=== PATIENT | male | born 1950 | race Caucasian/White ===

== ENCOUNTER → 2023-06-21 07:02 | Outpatient (REF) | payer MEDICARE, OTHER, SELFPAY ==
[2023-06-21 10:00] LABS: % Basophils 0.6 % (0-2); % Eosinophils 5.5 % (0-6); % Immature Granulocytes 0.3 % (0-0.5); % Lymphocytes 31.5 % (20.5-51.1); % Monocytes 11.1 % (1.7-9.3); Absolute Eosinophils 0.4 10^3/uL (0-0.7); Absolute Lymphocytes 2.1 10^3/uL (1.2-3.4); Absolute Monocytes 0.7 10^3/uL (0.1-0.6); Absolute Neutrophils 3.3 10^3/uL (1.4-6.5); Hematocrit 38.9 % (39.0-52.0); Hemoglobin 12.9 g/dL (13.0-18.0); Mean Corp Hgb Conc. 33.2 g/dL (33.0-37.0); Mean Corpuscular Hgb 32.3 pg (27.0-31.0); Mean Corpuscular Volume 97.5 fL (80.0-94.0); Mean Platelet Volume 9.7 fL (7.4-10.4); Nucleated Red Blood Cells % 0 % (-); Platelet Count 194 10^3/uL (130-400); Red Blood Cell Count 3.99 10^6/uL (4.70-6.10); Red Cell Dist. Width 13.5 % (11.5-14.5); White Blood Cell Count 6.5 10^3/uL (4.8-10.8)
[2023-06-21 10:39] LABS: ALT (SGPT) 29 U/L (0-50); AST (SGOT) 33 U/L (17-59); Albumin 3.7 g/dl (3.5-5.0); Alkaline Phosphatase 124 U/L (38-126); Blood Urea Nitrogen 22 mg/dl (9-20); Calcium 9.5 mg/dl (8.4-10.2); Carbon Dioxide 26 mmol/L (22-30); Chloride 107 mmol/L (98-107); Glucose 95 mg/dl (70-99); Sodium 137 mmol/L (135-145); Total Bilirubin 0.6 mg/dl (0.2-1.3); Total Protein 5.8 g/dl (6.3-8.2); eGFR > 60.00
[2023-06-21 11:09] LABS: PSA, Total - Diagnostic < 0.06 ng/ml (0.0-4.0)
[2023-06-21 11:10] LABS: Testosterone, Total 71.4 ng/dl (72-623)
== END ==
LOC: HWLAB 07:02
PROVIDERS: ATTENDING PHYSICIAN Internal Medicine; FAMILY PHYSICIAN Student in an Organized Health Care Education/Training Program
DX: C61 Malignant neoplasm of prostate (principal); C77.2 Secondary and unspecified malignant neoplasm of intra-abdominal lymph nodes
CPT/HCPCS: 36415; 80053; 84153; 84403; 85025

== ENCOUNTER 2023-07-08 01:02 | Emergency (ER) | payer MEDICARE, OTHER, SELFPAY ==
[2023-07-08 01:19] VITALS: BP 102/66
[2023-07-08 01:33] LABS: % Basophils 0.3 % (0-2); % Eosinophils 2.2 % (0-6); % Immature Granulocytes 0.4 % (0-0.5); % Lymphocytes 8.3 % (20.5-51.1); % Monocytes 6.6 % (1.7-9.3); % Neutrophils 82.2 % (42.2-75.2); Absolute Eosinophils 0.2 10^3/uL (0-0.7); Absolute Lymphocytes 0.9 10^3/uL (1.2-3.4); Absolute Monocytes 0.7 10^3/uL (0.1-0.6); Absolute Neutrophils 9.2 10^3/uL (1.4-6.5); Hematocrit 37.6 % (39.0-52.0); Hemoglobin 13.3 g/dL (13.0-18.0); Mean Corp Hgb Conc. 35.4 g/dL (33.0-37.0); Mean Corpuscular Hgb 33.3 pg (27.0-31.0); Nucleated Red Blood Cells % 0 % (-); Platelet Count 165 10^3/uL (130-400); Red Cell Dist. Width 13.5 % (11.5-14.5); White Blood Cell Count 11.1 10^3/uL (4.8-10.8)
[2023-07-08 01:55] LABS: ALT (SGPT) 20 U/L (0-50); AST (SGOT) 31 U/L (17-59); Albumin 3.3 g/dl (3.5-5.0); Alkaline Phosphatase 88 U/L (38-126); Blood Urea Nitrogen 19 mg/dl (9-20); Calcium 9.2 mg/dl (8.4-10.2); Carbon Dioxide 26 mmol/L (22-30); Chloride 100 mmol/L (98-107); Glucose 110 mg/dl (70-99); Potassium 3.3 mmol/L (3.5-5.1); Sodium 130 mmol/L (135-145); Total Bilirubin 1.5 mg/dl (0.2-1.3); Total Protein 5.6 g/dl (6.3-8.2); eGFR 48.85
[2023-07-08 02:00] VITALS: BP 90/59
[2023-07-08 02:10] LABS: Troponin I < 0.012 ng/ml
[2023-07-08 03:06] VITALS: BP 96/59
--- NOTE | 2023-07-08 03:16 | ED.GENMED ---
History of Present Illness
<ALINA Veras - Last Filed: 07/08/23 07:01>
General
Chief Complaint: Chest Pain
Source: patient
Exam Limitations: none
Time Seen by Provider: 07/08/23 03:05
Nursing documentation reviewed up to this point in time: agreed with
Travel History
Have you had any contact with someone who has COVID-19?: No
Do you have any symptoms of coronavirus? Fever > 100 degrees, chills, cough, shortness of breath, sore throat, loss of taste or smell, muscle aches, or headache?: No
History of Present Illness
History of Present Illness:
This is a 72 year old male, with a PMH of kidney stones, who presents to the ED c/o CP 5 hours ago. Pt states he had a urologic procedure yesterday morning to remove an obstructing kidney stone and for b/l orchiectomy due to prostate cancer. Pt
states he developed CP 12 hours after the procedure. He was sleeping when he was awoken with pounding constant left sided chest pain. He states he was also nauseous and vomited 2 times, with associated FULLER and dizziness. Pt states his chest pain has
gotten better but it is still there. He took diclofenac 5 hours ago. He denies any fever, chills, back pain, abd pain, or diarrhea. He states he has slight blood in his urine.
Past History
<ALINA Veras - Last Filed: 07/08/23 07:01>
Past History
ED Past Medical History: Asthma, HTN, Hypercholesterolemia and Other (History of Kidney stones, Urosepsis,)
ED Past Surgical History: Urological (kidney stones, castration (B/l orchiectomy))
Social History
Tobacco: Non-smoker
Alcohol: None
Drug: None
Personal:
Living: with family
Employment: Employed
Family History
Family History: CAD
Review of Systems
<Jinnyjose manuel [facility] - Last Filed: 07/08/23 07:01>
Review of Systems
Allergies reviewed?: Yes
All Other Systems: ROS reviewed and negative except as documented in HPI and ROS
Constitutional: Reports no symptoms; Denies fever or chills
EENT: Reports no symptoms
Respiratory: Reports no symptoms; Denies trouble breathing
Cardiac: Reports chest pain
ABD/GI: Reports nausea and vomiting; Denies abdominal pain
: Reports bleeding
Musculoskeletal: Reports no symptoms
Skin: Reports no symptoms
Neurological: Reports dizzy and headache
Psychiatric: Reports no symptoms
Phy Exam
<Juana Victor [facility] - Last Filed: 07/08/23 07:01>
General Physical Exam
General Presentation: no apparent distress
General age: appears stated age
General Skin: warm and dry
General Habitus: normal
General Mental: alert
General Hydration: dry mucous membranes
ENT Exam
ENT Exam: EOMI, pharynx normal, neck supple, normocephalic and swallowing well
Cardiovascular Exam
Cardiovascular Exam: regular rate/rhythm, no edema, no murmur, normal peripheral pulses and other (no chest wall tenderness)
Pulmonary Exam
Pulmonary Exam: lungs clear, no respiratory distress, no rales, no crackles, no rhonchi, no wheezing and no cough
Gastrointestinal Exam
Gastrointestinal Exam: normal bowel sounds, non tender, soft and non distended
Neurological Exam
Neurological Exam: alert and oriented x3
Musculoskeletal Exam
Musculoskeletal Exam: full ROM and no edema
Skin Exam
Skin Exam: normal color and warm/dry
Psychiatric Exam
Psychiatric Exam: normal mood/affect
Scores
<Juana Victor [facility] - Last Filed: 07/08/23 07:01>
Heart Score for Chest Pain Patients
STEMI patient?: Not applicable
<Barbra Devlin DO - Last Filed: 07/08/23 07:24>
Heart Score for Chest Pain Patients
STEMI patient?: No
History: Slightly or Non-Suspicious
ECG: Normal
Age: >/= 65 years
Risk Factors: 1 or 2 Risk Factors
Troponin: </= Normal Limit
Heart Score for Chest Pain Patients: 3
Heart Score Risk: 2.5% MACE over next 6 weeks
Course
<ALINA Veras - Last Filed: 07/08/23 07:01>
Orders/Labs/Results
Orders:
Orders
07/08/23 01:11
EKG [Electrocardiogram (*1)] Urgent
Reason for Study: Chest Pain
07/08/23 01:12
EKG- Treatment ONCE
07/08/23 01:23
Complete Blood Count/With Diff Urgent
Comprehensive Metabolic Panel Urgent
Troponin I Urgent
07/08/23 04:04
Pantoprazole [Protonix IV] 40 mg IV NOW STA
Abnormal Lab Results
07/08/23
01:23
WBC 11.1 H 10^3/uL
(4.8-10.8)
RBC 4.00 L 10^6/uL
(4.70-6.10)
Hct 37.6 L %
(39.0-52.0)
MCH 33.3 H pg
(27.0-31.0)
Absolute Neuts (auto) 9.2 H 10^3/uL
(1.4-6.5)
Absolute Lymphs (auto) 0.9 L 10^3/uL
(1.2-3.4)
Absolute Monos (auto) 0.7 H 10^3/uL
(0.1-0.6)
Neutrophils % 82.2 H %
(42.2-75.2)
Lymphocytes % 8.3 L %
(20.5-51.1)
Sodium 130 L mmol/L
(135-145)
Potassium 3.3 L mmol/L
(3.5-5.1)
Creatinine 1.5 H mg/dL
(0.7-1.3)
Glucose 110 H mg/dl
(70-99)
Total Bilirubin 1.5 H mg/dl
(0.2-1.3)
Total Protein 5.6 L g/dl
(6.3-8.2)
Albumin 3.3 L g/dl
(3.5-5.0)
07/08/23 01:23
07/08/23 01:23
Vital Signs
Initial and Last Documented VS:
Initial Vital Signs
Temp
98.0 F
07/08/23 01:12
Last Documented Vital Signs
Temp Pulse Resp BP Pulse Ox
98.0 F 77 14 99/70 98
07/08/23 01:12 07/08/23 04:00 07/08/23 04:00 07/08/23 04:00 07/08/23 04:00
<Barbra Devlin, DO - Last Filed: 07/08/23 07:24>
Orders/Labs/Results
Orders:
Orders
07/08/23 01:11
EKG [Electrocardiogram (*1)] Urgent
Reason for Study: Chest Pain
07/08/23 01:12
EKG- Treatment ONCE
07/08/23 01:23
Complete Blood Count/With Diff Urgent
Comprehensive Metabolic Panel Urgent
Troponin I Urgent
07/08/23 04:04
Pantoprazole [Protonix IV] 40 mg IV NOW STA
Abnormal Lab Results
03/02/24
01:23
WBC 11.1 H 10^3/uL
(4.8-10.8)
RBC 4.00 L 10^6/uL
(4.70-6.10)
Hct 37.6 L %
(39.0-52.0)
MCH 33.3 H pg
(27.0-31.0)
Absolute Neuts (auto) 9.2 H 10^3/uL
(1.4-6.5)
Absolute Lymphs (auto) 0.9 L 10^3/uL
(1.2-3.4)
Absolute Monos (auto) 0.7 H 10^3/uL
(0.1-0.6)
Neutrophils % 82.2 H %
(42.2-75.2)
Lymphocytes % 8.3 L %
(20.5-51.1)
Sodium 130 L mmol/L
(135-145)
Potassium 3.3 L mmol/L
(3.5-5.1)
Creatinine 1.5 H mg/dL
(0.7-1.3)
Glucose 110 H mg/dl
(70-99)
Total Bilirubin 1.5 H mg/dl
(0.2-1.3)
Total Protein 5.6 L g/dl
(6.3-8.2)
Albumin 3.3 L g/dl
(3.5-5.0)
07/08/23 01:23
07/08/23 01:23
Vital Signs
Initial and Last Documented VS:
Initial Vital Signs
Temp
98.0 F
07/08/23 01:12
Last Documented Vital Signs
Temp Pulse Resp BP Pulse Ox
98.0 F 77 14 99/70 98
07/08/23 01:12 07/08/23 04:00 07/08/23 04:00 07/08/23 04:00 07/08/23 04:00
<ALINA Veras - Last Filed: 07/08/23 07:01>
*Critical Care Note
Total Time (30-74mins, 75-104mins- exclusive of procedures): Not Applicable
<Barbra Devlin DO - Last Filed: 07/08/23 07:24>
*Pulse Oximetry
Patient hypoxic: no
*EKG
Interpreted by ED Provider?: Yes
Interpretation: normal
Comparison EKG: no changes (Unchanged from previous October 2021)
Rate: normal
Rhythm: sinus
[place]: normal axis
Interval: normal interval
QRS Pattern: normal QRS
Ischemia: no ischemia
*Blood Bank Technologist Interpretation
Rate: normal
Interpretation: normal
Rhythm: sinus
ED Attending Note
<ALINA Veras - Last Filed: 07/08/23 07:01>
-
Portions of this chart may have been created with voice recognition software.� Occasional wrong word or��sound alike� substitutions may have occurred due to the inherent limitations of voice recognition software.
<Barbra Devlin DO - Last Filed: 07/08/23 07:24>
ED Attending Note
Patient seen and examined by attending physician: Yes
I performed the substantive portion of visit, reviewed & personally made and approve the management plan that is documented in note by myself or EMILIANO.: Yes
I performed a history and physical exam of patient and discussed management with resident, I reviewed resident's note and agree with documented findings and plan of care.: Yes
ED Attending Note:
This is a 72-year-old gentleman who has history of hypertension, hyperlipidemia, GERD, kidney stones, recurrent prostate cancer. Over the past 2 years he has been receiving hormone injections monthly most recently, yesterday he underwent right
ureteral kidney stone removal with stent placement as well as bilateral orchiectomy for treatment of prostate cancer.
He was discharged home with a prescription for Bactrim, Pyridium, diclofenac for which he took 1 dose of each around 8 PM and then laid down around 8:30 PM and then shortly after lying down developed sharp left-sided chest pain accompanied with
nausea and 2-3 episodes of nonbloody vomitus. He denies shortness of breath, denies cough, no dizziness nor lightheadedness. Chest pain was sharp, stabbing and somewhat pounding in nature and lasted approximately 2 hours. He denies back or neck
pain.
Currently feeling improved, no further nausea and is in fact thirsty requesting some water to drink. He does note mild headache but no neck nor back pain.
GENERAL: 72-year-old gentleman appears his stated age, bright and alert, pleasant, appears in no acute distress. is accompanying.
EYE: anicteric
NECK: Supple, nontender, no meningismus, no significant adenopathy.
ENT: oral mucosa is moist. No rhinorrhea.
CARDIAC: Regular rate and rhythm. no murmur.
LUNGS: Clear breath sounds bilaterally, no acute respiratory distress, no wheezes/rales/rhonchi. No chest wall tenderness.
ABDOMEN: Soft, nondistended, without focal tenderness, no r/g, no cvat. normoactive BS. Spencer catheter draining orange-colored clear urine.
NEUROLOGICAL: Alert and oriented x3, no focal neuro deficits. Gait is steady.
SKIN: Warm and dry, normal color, skin intact. No rash.
MUSCULOSKELETAL: No C/C/E. peripheral pulses are full and equal b/l. No palpable tenderness.
PSYCH: Normal and appropriate interaction.
Concern for ACS, GERD, pneumonia, gastroenteritis. PE is unlikely.
Labs show mildly elevated white blood cell count of 11.1, normal H&H.
Mild hyponatremia of 130, mild hypokalemia of 3.3.
Creatinine of 1.5, similar to previous in the past.
Troponin is negative. With chest pain occurring over 4 hours prior to arrival, negative troponin, no indication to repeat.
EKG shows normal sinus rhythm, normal axis, normal intervals, no acute ST-T wave abnormalities. Similar and unchanged from previous EKG October 2021.
Patient feeling markedly improved, thirsty and eager to be discharged to home.
I suspect his symptoms are GERD in nature and may be aggravated/due to Pyridium versus diclofenac versus combination of both. Less likely GI upset related to Bactrim.
Will give a dose of Protonix and trial oral fluids.
If tolerated and no return of symptoms will discharge to home.
Recommend he hold off on diclofenac and Pyridium unless pain recurs. Would recommend he continue antibiotic until completed.
Prompt follow-up with urologist for recheck and prompt follow-up with PCP as well.
Return precautions discussed.
Discharge Plan
Departure
Patient Disposition: Home (Routine Discharge)
Date of Disposition: 07/08/23
Time of Disposition: 04:25
Patient with high blood pressure during this ER visit?: No
Condition: Good
Discharge Problem:
acute GERD
Instructions: Acid Reflux and GERD in Adults (DC), Chest Pain PCP Follow Up
Prescriptions:
No Action
atorvastatin 80 MG tablet
80 mg PO HS
zonisamide 100 MG capsule
200 mg PO DAILY
lorazepam 1 MG tablet
2 mg PO BID
[facility]'s Aspirin 81 MG
81 mg PO DAILY
carisoprodol 350 MG tablet
350 mg PO PRN PRN (Reason: unknown)
omeprazole [Prilosec] 20 MG capsule,delayed release(DR/EC)
20 mg PO PRN PRN (Reason: unknown)
irbesartan 150 MG tablet
150 mg PO DAILY
albuterol sulfate [Ventolin HFA] 90 MCG/PUFF HFA aerosol inhaler
1 puff inhalation PRN PRN (Reason: asthma)
cholecalciferol (vitamin D3) 1,000 UNIT capsule
1,000 unit PO DAILY
cephalexin 500 MG capsule
500 mg PO DAILY Qty: 14 0RF
tramadol 50 MG tablet
50 mg PO Q6HPRN PRN (Reason: pain) Qty: 30 0RF
methylprednisolone [Medrol (Michael)] 4 MG tablets,dose pack
4 tab PO . DIRECT Qty: 1 0RF
gabapentin 300 MG capsule
300 mg PO HS Qty: 20 0RF
Referrals:
Adam Her MD [Family Provider] - Call in 1-3 days for appt
Interventions
Interventions:
*Risk Screen - Suicide Last Done: 07/08/23 04:53
*General Assessment Last Done: 07/08/23 01:31
*Neglect/Abuse Screening Last Done: 07/08/23 01:31
ED- Fall Risk Assessment Last Done: 07/08/23 04:56
*ED COVID-19 Vaccine History Last Done: 07/08/23 01:31
*Nursing Disposition Last Done: 07/08/23 04:53
ED- Cardiac Assessment Last Done: 07/08/23 03:35
Discharge Date and Time
Discharge Date/Time: 07/08/23 04:55
[2023-07-08 04:00] VITALS: BP 99/70
[2023-07-08] MEDS: PROTONIX IV 40 MG IV (04:07)
== END 2023-07-08 04:55 | disposition home or self-care (01) ==
LOC: EMR 01:02
PROVIDERS: EMERGENCY PHYSICIAN Emergency Medicine; FAMILY PHYSICIAN Internal Medicine
DX: K21.9 Gastro-esophageal reflux disease without esophagitis (principal); J45.909 Unspecified asthma, uncomplicated; I10 Essential (primary) hypertension; E78.00 Pure hypercholesterolemia, unspecified; E87.1 Hypo-osmolality and hyponatremia; E87.6 Hypokalemia; Z82.49 Family history of ischemic heart disease and other diseases of the circulatory system; Z87.442 Personal history of urinary calculi; Z90.79 Acquired absence of other genital organ(s)
CPT/HCPCS: 99283; 96374; 80053; 84484; 85025; 93005

== ENCOUNTER → 2023-08-09 08:50 | Outpatient (REF) | payer MEDICARE, OTHER, SELFPAY ==
[2023-08-09 12:36] LABS: % Basophils 0.5 % (0-2); % Eosinophils 5.1 % (0-6); % Immature Granulocytes 0.3 % (0-0.5); % Lymphocytes 34.7 % (20.5-51.1); % Monocytes 10.3 % (1.7-9.3); % Neutrophils 49.1 % (42.2-75.2); Absolute Eosinophils 0.3 10^3/uL (0-0.7); Absolute Lymphocytes 2.1 10^3/uL (1.2-3.4); Absolute Monocytes 0.6 10^3/uL (0.1-0.6); Absolute Neutrophils 2.9 10^3/uL (1.4-6.5); Hematocrit 37.2 % (39.0-52.0); Hemoglobin 12.5 g/dL (13.0-18.0); Mean Corp Hgb Conc. 33.6 g/dL (33.0-37.0); Mean Corpuscular Hgb 33.2 pg (27.0-31.0); Mean Corpuscular Volume 98.9 fL (80.0-94.0); Mean Platelet Volume 9.8 fL (7.4-10.4); Nucleated Red Blood Cells % 0 % (-); Platelet Count 175 10^3/uL (130-400); Red Blood Cell Count 3.76 10^6/uL (4.70-6.10); Red Cell Dist. Width 14.1 % (11.5-14.5); White Blood Cell Count 5.9 10^3/uL (4.8-10.8)
[2023-08-09 13:02] LABS: ALT (SGPT) 21 U/L (0-50); AST (SGOT) 27 U/L (17-59); Albumin 3.9 g/dl (3.5-5.0); Alkaline Phosphatase 100 U/L (38-126); Blood Urea Nitrogen 26 mg/dl (9-20); Calcium 9.8 mg/dl (8.4-10.2); Carbon Dioxide 27 mmol/L (22-30); Chloride 103 mmol/L (98-107); Glucose 93 mg/dl (70-99); Sodium 138 mmol/L (135-145); Total Bilirubin 0.6 mg/dl (0.2-1.3); Total Protein 6.1 g/dl (6.3-8.2); eGFR 58.01
[2023-08-09 13:31] LABS: PSA, Total - Diagnostic < 0.06 ng/ml (0.0-4.0)
[2023-08-09 13:33] LABS: Testosterone, Total 78.7 ng/dl (72-623)
== END ==
LOC: HWLAB 08:50
PROVIDERS: ATTENDING PHYSICIAN Internal Medicine Hematology & Oncology; FAMILY PHYSICIAN Student in an Organized Health Care Education/Training Program; REFERRING PHYSICIAN Urology
DX: C61 Malignant neoplasm of prostate (principal); C77.2 Secondary and unspecified malignant neoplasm of intra-abdominal lymph nodes
CPT/HCPCS: 36415; 80053; 84153; 84403; 85025

== ENCOUNTER 2024-01-01 11:04 | Emergency (ER) | payer MEDICARE, OTHER, SELFPAY ==
[2024-01-01 11:19] VITALS: BP 158/95
[2024-01-01] MEDS: REGLAN 10 MG IV (12:15)
[2024-01-01] MEDS: BENADRYL 25 MG IV (12:16)
[2024-01-01] MEDS: TORADOL 30 MG IV (12:16)
[2024-01-01 12:19] VITALS: BP 146/84
[2024-01-01 12:47] LABS: % Basophils 0.4 % (0-2); % Eosinophils 3.3 % (0-6); % Immature Granulocytes 0.2 % (0-0.5); % Monocytes 6.9 % (1.7-9.3); % Neutrophils 76.2 % (42.2-75.2); Absolute Eosinophils 0.2 10^3/uL (0-0.7); Absolute Lymphocytes 0.7 10^3/uL (1.2-3.4); Absolute Monocytes 0.4 10^3/uL (0.1-0.6); Absolute Neutrophils 4.1 10^3/uL (1.4-6.5); Hematocrit 35.5 % (39.0-52.0); Hemoglobin 12.7 g/dL (13.0-18.0); Mean Corp Hgb Conc. 35.8 g/dL (33.0-37.0); Mean Corpuscular Hgb 32.8 pg (27.0-31.0); Mean Corpuscular Volume 91.7 fL (80.0-94.0); Mean Platelet Volume 9.6 fL (7.4-10.4); Nucleated Red Blood Cells % 0 % (-); Platelet Count 201 10^3/uL (130-400); Red Blood Cell Count 3.87 10^6/uL (4.70-6.10); Red Cell Dist. Width 12.9 % (11.5-14.5); White Blood Cell Count 5.4 10^3/uL (4.8-10.8)
[2024-01-01 12:59] LABS: ALT (SGPT) 17 U/L (0-50); AST (SGOT) 29 U/L (17-59); Albumin 3.8 g/dl (3.5-5.0); Alkaline Phosphatase 88 U/L (38-126); Blood Urea Nitrogen 24 mg/dl (9-20); Carbon Dioxide 30 mmol/L (22-30); Chloride 104 mmol/L (98-107); Glucose 109 mg/dl (70-99); Lipase 149 U/L (23-300); Potassium 4.1 mmol/L (3.5-5.1); Sodium 141 mmol/L (135-145); Total Bilirubin 0.8 mg/dl (0.2-1.3); eGFR > 60.00
--- NOTE | 2024-01-01 14:13 | ED.SKININJ ---
HPI-Injury
General
Chief Complaint: Bite
Source: patient and spouse
Exam Limitations: none
Time Seen by Provider: 01/01/24 11:30
Nursing documentation reviewed up to this point in time: agreed with
History of Present Illness-Injury
Is this injury a work related problem?: No
Is pt an associate of [facility]?: No
Initial Injury comments:
73-year-old female past medical history of hypertension hyperlipidemia, GERD, previous prostate cancer presenting to the emergency department today with concerns of initially a bug bite to his left cheek 1 week ago has had ongoing redness and
discomfort to the area since also feels like he is having a worsening headache as well. His having some sensitivity to light. Denies any neck pain fevers chest pain. Denies any numbness weakness
Past History
Past History
ED Past Medical History: Asthma, HTN, Hypercholesterolemia and Other (History of Kidney stones, Urosepsis,)
ED Past Surgical History: Urological (kidney stones, castration (B/l orchiectomy))
Social History
Tobacco: Non-smoker
Alcohol: None
Drug: None
Personal:
Living: with family
Employment: Employed
Family History
Family History: CAD
Review of Systems
Review of Systems
Allergies reviewed?: Yes
All Other Systems: ROS reviewed and negative except as documented in HPI and ROS
Phy Exam
Physical Exam
Physical Exam:
GENERAL: Alert , in no apparent distress
EYE: pupils equal and reactive
NECK: Supple, no significant adenopathy.
ENT: o/p clr, mmm.
CARDIAC: Regular rate and rhythm .
LUNGS: Clear breath sounds bilaterally, no acute respiratory distress, no wheezes/rales/rhonchi
ABDOMEN: Soft, without focal tenderness, no r/g, no cvat
NEUROLOGICAL: Alert and oriented, no focal neuro deficits
SKIN: Warm and dry, skin intact.
MUSCULOSKELETAL: No edema, well perfused.
PSYCH: Normal and appropriate interaction.
Course
Orders/Labs/Results
Orders:
Orders
01/01/24 11:10
Electrocardiogram (*1) Urgent
Reason for Study: Chest Pain
01/01/24 11:11
EKG- Treatment ONCE
01/01/24 11:39
Iohexol [Omnipaque] See Protocol PO NOW STA
01/01/24 11:51
CT Facial Bones W/ Iv Contrast Urgent
Comment:
Reason For Exam: left sided facial swelling pain, eval for abscess
Diphenhydramine [Benadryl] 25 mg IV NOW STA
Ketorolac [Toradol] 30 mg IV NOW STA
Metoclopramide [Reglan] 10 mg IV NOW STA
01/01/24 12:08
Complete Blood Count/With Diff Urgent
Comprehensive Metabolic Panel Urgent
Lipase Urgent
Blood Culture Urgent
KELLEY Source: Blood/Venous
Specimen Description:
01/01/24 15:07
Urinalysis Reflex To Culture Urgent
Date Specimen was Collected: 01/01/24
Time Specimen was Collected: 14:54
01/01/24 15:22
Cephalexin Monohydrate [Keflex] 500 mg PO NOW STA
01/01/24 15:23
Dexamethasone Sod Phosphate [Decadron] 10 mg IV NOW STA
Abnormal Lab Results
01/01/24
12:08
RBC 3.87 L 10^6/uL
(4.70-6.10)
Hgb 12.7 L g/dL
(13.0-18.0)
Hct 35.5 L %
(39.0-52.0)
MCH 32.8 H pg
(27.0-31.0)
Absolute Lymphs (auto) 0.7 L 10^3/uL
(1.2-3.4)
Neutrophils % 76.2 H %
(42.2-75.2)
Lymphocytes % 13.0 L %
(20.5-51.1)
BUN 24 H mg/dl
(9-20)
Glucose 109 H mg/dl
(70-99)
Total Protein 6.0 L g/dl
(6.3-8.2)
01/01/24 12:08
01/01/24 12:08
Vital Signs
Initial and Last Documented VS:
Initial Vital Signs
Temp Pulse Resp BP Pulse Ox
98.0 F 79 16 158/95 98
01/01/24 11:19 01/01/24 11:19 01/01/24 11:19 01/01/24 11:19 01/01/24 11:19
Last Documented Vital Signs
Temp Pulse Resp BP Pulse Ox
98.0 F 70 13 146/88 99
01/01/24 11:19 01/01/24 14:54 01/01/24 12:19 01/01/24 14:54 01/01/24 14:54
MDM/Problems Addressed
MDM/Problems Addressed:
73-year-old male presenting to the emergency department today with concerns of left-sided facial discomfort after what he believes was a bug bite 1 week. Also now having a diffuse headache. Denies any neck pain fevers normal neurologic evaluation
normal vital signs upon arrival. No white count. Patient was given Toradol and Reglan with significant improvement of symptoms. CT scan of the face without signs of underlying abscess or underlying infection. Patient does have some continued
slight redness to the left side of the face concerning this plan to treat for possible cellulitis with Keflex also given dexamethasone to help with headache. At this point no neck stiffness no symptoms consistent with meningitis but no white count
no fever normal neurologic examination. Otherwise patient appears stable for discharge was given very strict return precautions for any progression of symptoms.
*Critical Care Note
Total Time (30-74mins, 75-104mins- exclusive of procedures): Not Applicable
ED Attending Note
-
Portions of this chart may have been created with voice recognition software.� Occasional wrong word or��sound alike� substitutions may have occurred due to the inherent limitations of voice recognition software.
Discharge Plan
Departure
Patient Disposition: Home (Routine Discharge)
Date of Disposition: 01/01/24
Time of Disposition: 15:26
Patient with high blood pressure during this ER visit?: No
Condition: Good
Covid-19: Not Applicable
Discharge Problem:
Facial cellulitis, Headache
Instructions: Cellulitis (Skin Infection), Child (DC)
Prescriptions:
New
cephalexin 500 mg capsule
500 mg PO QID 7 Days Qty: 28 0RF
No Action
atorvastatin 80 MG tablet
80 mg PO HS
zonisamide 100 MG capsule
200 mg PO DAILY
lorazepam 1 MG tablet
2 mg PO BID
[facility]'s Aspirin 81 MG
81 mg PO DAILY
carisoprodol 350 MG tablet
350 mg PO PRN PRN (Reason: unknown)
omeprazole [Prilosec] 20 MG capsule,delayed release(DR/EC)
20 mg PO PRN PRN (Reason: unknown)
irbesartan 150 MG tablet
150 mg PO DAILY
albuterol sulfate [Ventolin HFA] 90 MCG/PUFF HFA aerosol inhaler
1 puff inhalation PRN PRN (Reason: asthma)
cholecalciferol (vitamin D3) 1,000 UNIT capsule
1,000 unit PO DAILY
cephalexin 500 MG capsule
500 mg PO DAILY Qty: 14 0RF
tramadol 50 MG tablet
50 mg PO Q6HPRN PRN (Reason: pain) Qty: 30 0RF
methylprednisolone [Medrol (Michael)] 4 MG tablets,dose pack
4 tab PO . DIRECT Qty: 1 0RF
gabapentin 300 MG capsule
300 mg PO HS Qty: 20 0RF
Referrals:
Az Allen MD [Family Provider] -
Activity Restrictions/Additional Instructions:
You came to the emergency department today with concerns of headache as well as slight redness to the left side of your face. Here you had a CT scan that did not show any underlying infection or abscess. Your labs did not show significant emergent
findings. Please take the Keflex in case there is a small bacterial infection to the base otherwise immediately return for any progression of symptoms.
Interventions
Interventions:
*Risk Screen - Suicide Last Done: 01/01/24 12:23
*General Assessment Last Done: 01/01/24 12:23
*Neglect/Abuse Screening Last Done: 01/01/24 12:23
*ED COVID-19 Vaccine History Last Done: 01/01/24 12:23
ED-Skin Assessment Last Done: 01/01/24 12:23
Discharge Date and Time
Print Language: LATVIAN
[2024-01-01 14:54] VITALS: BP 146/88
[2024-01-01] MEDS: KEFLEX 500 MG PO (15:59)
[2024-01-01] MEDS: DECADRON 10 MG IV (15:59)
[2024-01-01 16:17] LABS: Urine Albumin Negative (Neg - Trace); Urine Bilirubin Negative (Negative); Urine Character Clear (Clear); Urine Color Yellow; Urine Glucose Negative (Negative); Urine Ketone Negative (Negative); Urine Leukocyte Negative (Negative); Urine Nitrite Negative (Negative); Urine Occult Blood Negative (Negative); Urine Specific Gravity 1.005 (<1.030); Urine Urobilinogen Negative (Neg - 1+)
== END 2024-01-01 16:14 | disposition home or self-care (01) ==
LOC: EMR 11:04
PROVIDERS: Physician Assistant; EMERGENCY PHYSICIAN Emergency Medicine; FAMILY PHYSICIAN Family Medicine
DX: R51.9 Headache, unspecified (principal); L03.211 Cellulitis of face; R06.02 Shortness of breath; I10 Essential (primary) hypertension; C61 Malignant neoplasm of prostate; E78.00 Pure hypercholesterolemia, unspecified; K21.9 Gastro-esophageal reflux disease without esophagitis; J45.909 Unspecified asthma, uncomplicated; M19.90 Unspecified osteoarthritis, unspecified site; Z90.79 Acquired absence of other genital organ(s); Z87.442 Personal history of urinary calculi; Z88.8 Allergy status to other drugs, medicaments and biological substances; Z91.048 Other nonmedicinal substance allergy status
CPT/HCPCS: 99285; 96374; 96375 ×3; 70487; 80053; 81003; 83690; 85025; 87040; 93005; Q9967